=== PATIENT | female | born 2000 | race Caucasian/White ===

== ENCOUNTER 2023-08-10 16:43 | Outpatient (CLI) | payer BC ==
[2023-08-10 17:23] LABS: Appearance,Urine Clear (Clear); Bilirubin,Urine Negative (Negative); Blood,Urine Negative (Negative); Color,Urine Colorless; Glucose,Urine (UA) Negative (Negative); Ketones,Urine Negative (Negative); Leukocyte Esterase,Urine Negative (Negative); Nitrite,Urine Negative (Negative); Protein,Urine Negative (Negative); Specific Gravity,Urine 1.019 (1.001-1.035); Urobilinogen,Urine <2.0 mg/dL (<2.0)
[2023-08-10 17:42] VITALS: BP 129/81; PULSE 99; RESP 16; TEMP 98.1
[2023-08-10 17:44] LABS: Creatinine,Urine Random 87.2 mg/dL; Protein/Creatinine Ratio,Urine 0.057
[2023-08-10 17:46] LABS: Basophils % (A) 0 %; Eosinophils # (A) 0.1 k/uL (0-0.7); Eosinophils % (A) 1 %; HCT 33.3 % (34.0-46.0); HGB 10.9 gm/dL (11.4-16.0); Hypochromasia Slight; Lymphocytes # (A) 1.7 k/uL (1.0-4.8); Lymphocytes % (A) 13 %; MCH 27.7 pg (25.0-35.0); MCHC 32.6 g/dL (31.0-37.0); MCV 84.9 fL (80.0-100.0); Mean Platelet Volume 9.2; Monocytes # (A) 0.6 k/uL (0-1.0); Monocytes % (A) 4 %; Neutrophils # (A) 10.2 k/uL (1.3-7.7); Neutrophils % (A) 81 %; Platelet Count 230 k/uL (150-450); RBC 3.93 m/uL (3.80-5.40); RDW 13.1 % (11.5-15.5); WBC 12.7 k/uL (3.8-10.6)
[2023-08-10 18:01] LABS: ALT 15 U/L (4-34); AST 26 U/L (14-36); African American GFR (CKD) >90 (>60 ml/min/1.73 sqM); Blood Urea Nitrogen 14 mg/dL (7-17); Non-African American GFR(CKD) >90 (>60 ml/min/1.73 sqM); Uric Acid 2.4 mg/dL (3.7-7.4)
== END 2023-08-10 18:58 | disposition home or self-care (01) ==
LOC: FBPOP 16:43
PROVIDERS: ATTEND Obstetrics & Gynecology
DX: O13.3 Gestational [pregnancy-induced] hypertension without significant proteinuria, third trimester (principal); Z3A.33 33 weeks gestation of pregnancy; Z91.010 Allergy to peanuts
CPT/HCPCS: 59025; 81003; 82565; 82570; 84156; 84450; 84460; 84520; 84550; 85025

== ENCOUNTER 2023-09-25 08:35 | Inpatient (IN) | payer BC ==
[2023-10-03] MEDS ORDERED: OXYTOCIN 10 UNIT/ML 1 ML VIAL IM PRN (06:26)
[2023-10-03] MEDS ORDERED: TRANEXAMIC 1,000 MG/100ML-NACL 1,000 MG in EMPTY BAG 1 BAG IV PRN (06:26)
[2023-10-03] MEDS ORDERED: METHYLERGONOVINE 0.2 MG/ML 1 ML AMP IM PRN (06:26)
[2023-10-03] MEDS ORDERED: TERBUTALINE 1 MG/ML VIAL SQ PRN (06:26)
[2023-10-03] MEDS ORDERED: CARBOPROST TROMETHAMINE 250 MCG/ML 1 ML AMP IM PRN (06:26)
[2023-10-03] MEDS ORDERED: LIDOCAINE 0.5% (PF) 5 MG/ML (50 ML SDV) SQ PRN (06:26)
[2023-10-03] MEDS ORDERED: miSOPROStoL 200 MCG TAB PO PRN (06:26)
[2023-10-03] MEDS: LACTATED RINGERS 1,000 ML IV SCH (06:37)
[2023-10-03] MEDS: OXYTOCIN 30 UNITS/500 ML NS 30 UNIT in SALINE 1 500ML.BAG IV SCH (06:45)
[2023-10-03 06:47] LABS: Basophils % (A) 0 %; Eosinophils # (A) 0.1 k/uL (0-0.7); Eosinophils % (A) 1 %; HCT 33.8 % (34.0-46.0); HGB 11.1 gm/dL (11.4-16.0); Hypochromasia Slight; Lymphocytes # (A) 2.1 k/uL (1.0-4.8); Lymphocytes % (A) 20 %; MCH 25.6 pg (25.0-35.0); MCHC 32.7 g/dL (31.0-37.0); Mean Platelet Volume 10.3; Monocytes # (A) 0.6 k/uL (0-1.0); Monocytes % (A) 6 %; Neutrophils # (A) 7.8 k/uL (1.3-7.7); Neutrophils % (A) 72 %; Platelet Count 218 k/uL (150-450); RBC 4.32 m/uL (3.80-5.40); RDW 15.3 % (11.5-15.5); WBC 10.9 k/uL (3.8-10.6)
[2023-10-03 06:56] LABS: MCV 78.2 fL (80.0-100.0)
--- NOTE | 2023-10-03 08:04 | P.HPOB ---
History of Present Illness H&P Date: 10/03/23 Chief Complaint: Induction of labor, post-dates Ms. Villafana is a 23 year old at 41 weeks and 1 day with EDC of 09/25/2023 by 8 week ultrasound who presents to labor and delivery for induction of labor for post-dates. The has otherwise been uncomplicated. The fetus is estimated to be in the 35%ile by a 33 week growth ultrasound. work-up: blood type A positive, antibody screen negative, rubella immune, VDRL non-reactive, HBsAg negative, HIV negative, HCV Ab negative, gonorrhea negative, chlamydia negative, 1 hour GTT 89, GBS negative. s/p TDap vaggine 08/24/23. Past Medical History Past Medical History: No Reported History History of Any Multi-Drug Resistant Organisms: None Reported Additional Past Surgical History / Comment(s): Bland teeth removed 2020 Past Anesthesia/Blood Transfusion Reactions: No Reported Reaction Past Psychological History: No Psychological Hx Reported Smoking Status: Never smoker Medications and Allergies Home Medications Medication Instructions Recorded Confirmed Type Vit No.179/Iron/Folic 1 each PO DAILY 10/03/23 10/03/23 History [ Tablet] Allergies Allergy/AdvReac Type Severity Reaction Status Date / Time peanut Allergy Swelling Verified 10/03/23 06:22 Exam Vital Signs Temp Pulse Resp BP Pulse Ox 10/03/23 06:11 97.7 F 106 H 16 139/89 98 Intake and Output 10/02/23 10/03/23 10/03/23 22:59 06:59 14:59 Other: Weight 104.326 kg Focused physical exam is performed. This is a healthy-appearing in no apparent distress. Breathing is non-labored. Abdomen is gravid and non-tender. Cervical exam is 4 cm, 90 effacement, -2 station. AROM is undertaken with clear fluid noted. Extremities non-tender and non-edematous. heart tones are Category I and tocometer is graphing contractions every 2-4 minutes. Results Result Diagrams: 10/03/23 06:30 Abnormal Lab Results - Last 24 Hours (Table) 10/03/23 Range/Units 06:30 WBC 10.9 H (3.8-10.6) k/uL Hgb 11.1 L (11.4-16.0) gm/dL Hct 33.8 L (34.0-46.0) % MCV 78.2 L D (80.0-100.0) fL Neutrophils # 7.8 H (1.3-7.7) k/uL Assessment and Plan Assessment: 23 year old at 41 weeks and 1 day presenting for induction of labor for post-dates Plan: Admit, NPO, pitocin per protocol, s/p AROM, epidural prn. Anticipate vaginal delivery.
[2023-10-03] MEDS ORDERED: fentaNYL (PF) 50 MCG/ML 5 ML AMP ONE (09:49)
[2023-10-03] MEDS ORDERED: SODIUM CHLORIDE 0.9% 250 ML BAG ONE (09:49)
[2023-10-03] MEDS ORDERED: ROPIVACAINE 5 MG/ML 30 ML VIAL ONE (09:49)
--- NOTE | 2023-10-03 13:33 | P.PROBDLV ---
Vaginal Delivery Note - . Vaginal Delivery Note: DATE OF SERVICE: 10/03/2023 PROCEDURE: Normal Vaginal Delivery ATTENDING: Dr. Mikaela Wooten MD ESTIMATED BLOOD LOSS: 200 mL FINDINGS: VFI, Apgars 8/9. Weight 8 pounds and 10 ounces (3925 grams) PROCEDURE: Ms. Villafana is a 23 year old at 41 weeks and 1 day presenting to labor and delivery for induction of labor. The has been uncomplicated. For further details, please review the admitting H&P. Pitocin was titrated per protocol. AROM was undertaken at 754 revealing clear amniotic fluid. The patient received epidural anesthesia per her request. The patient was completely dilated at 1239. She pushed effectively with Category I heart tones. A viable female was delivered at 1308. Terminal meconium was noted. The was placed on the maternal abdomen and bulb suctioned. The infant was noted to be spontaneously crying. Cord was clamped and cut after a 30-second delay. The was handed off to the pediatric team. Placenta was delivered whole with gentle cord traction at 1312. Oxytocin was started to facilitate uterine tone. Uterine fundus was found to be firm and below the umbilicus upon fundal massage. Thorough examination of the cervix, vagina, periurethral area, and perineum revealed a small second degree laceration that was infused with lidocaine and repaired with 2-0 Vicryl in the usual fashion. The patient is stable and allowed to begin the bonding process.
[2023-10-03] MEDS ORDERED: SIMETHICONE 80 MG CHEWABLE PO PRN (13:34)
[2023-10-03] MEDS ORDERED: LANOLIN CREAM 1 GM TUBE TOPICAL PRN (13:34)
[2023-10-03] MEDS ORDERED: ZOLPIDEM 5 MG TAB PO PRN (13:34)
[2023-10-03] MEDS ORDERED: BENZOCAINE/MENTHOL SPRAY 1 GM/SPRAY AEROSOL TOPICAL PRN (13:34)
[2023-10-03] MEDS ORDERED: ACETAMINOPHEN TAB 325 MG TAB PO PRN (13:34)
[2023-10-03] MEDS ORDERED: diphenhydrAMINE 50 MG CAP PO PRN (13:34)
[2023-10-03] MEDS ORDERED: HYDROCORTISONE 2.5% RECTAL CREAM 30 GM TUBE RECTAL PRN (13:34)
[2023-10-03] MEDS ORDERED: diphenhydrAMINE 25 MG CAP PO PRN (13:34)
[2023-10-03] MEDS ORDERED: diphenhydrAMINE 50 MG/ML 1 ML VIAL IVP PRN ×2 (13:34)
[2023-10-03] MEDS: SENNOSIDES-DOCUSATE SODIUM 1 EACH TAB PO SCH (22:09)
[2023-10-04] MEDS: IBUPROFEN 600 MG TAB PO PRN (01:22)
[2023-10-04 02:58] VITALS: RESP 16
[2023-10-04 08:02] LABS: Basophils % (A) 0 %; Eosinophils # (A) 0.1 k/uL (0-0.7); Eosinophils % (A) 1 %; HCT 32.7 % (34.0-46.0); HGB 10.3 gm/dL (11.4-16.0); Hypochromasia Moderate; Lymphocytes # (A) 2.6 k/uL (1.0-4.8); Lymphocytes % (A) 16 %; MCHC 31.6 g/dL (31.0-37.0); MCV 79.2 fL (80.0-100.0); Mean Platelet Volume 10.2; Monocytes # (A) 0.7 k/uL (0-1.0); Monocytes % (A) 5 %; Neutrophils % (A) 77 %; Platelet Count 211 k/uL (150-450); RBC 4.13 m/uL (3.80-5.40); RDW 15.8 % (11.5-15.5); WBC 15.6 k/uL (3.8-10.6)
[2023-10-04 08:21] VITALS: BP 125/83; PULSE 73; TEMP 97.8
--- NOTE | 2023-10-04 09:05 | P.DS ---
Providers Date of admission: 10/03/23 06:06 Expected date of discharge: 10/04/23 Attending physician: Mikaela Wooten MD Primary care physician: [facility] Course: Ms. Villafana is a 23 year old now PPD#1 s/p normal vaginal delivery after induction of labor at 41 weeks and 1 day for post-dates . The patient is doing well this morning and had no acute events overnight. She has no complaints this morning. She reports minimal lochia, passing flatus, voiding without difficulty, ambulating, and eating/drinking without nausea or vomiting. doing well at bedside. She denies chest pain, shortness of breathing, fevers, or chills overnight. She denies pain or swelling in the legs. restrictions are reviewed with the patient including pelvic rest for 6 weeks. The patient is encouraged to call the office if she experiences any heavy bleeding, foul-smelling discharge, breast complaints, or any if she has any other concerns. The patient did have a few intermittently elevated blood pressure after delivery, this morning all pressures have been normotensive. She will follow up in the office in 1 week for blood pressure check. All questions are answered. Assessment: 23 year old now PPD#1 s/p normal vaginal delivery Patient Condition at Discharge: Good Plan - Discharge Summary New Discharge Prescriptions: New Ibuprofen [Motrin] 600 mg PO Q6HR PRN #30 tab PRN Reason: Mild Pain (Scale 1 To 3) Acetaminophen Tab [Tylenol] 650 mg PO Q6H PRN #30 tab PRN Reason: Mild Pain (Scale 1 To 3) No Action Vit No.179/Iron/Folic [ Tablet] 1 each PO DAILY Discharge Medication List Vit No.179/Iron/Folic [ Tablet] 1 each PO DAILY 10/03/23 [History] Acetaminophen Tab [Tylenol] 650 mg PO Q6H PRN #30 tab 10/04/23 [Rx] Ibuprofen [Motrin] 600 mg PO Q6HR PRN #30 tab 10/04/23 [Rx] Follow up Appointment(s)/Referral(s): Mikaela Wooten MD [STAFF PHYSICIAN] - 1 Week (blood pressure check) Activity/Diet/Wound Care/Special Instructions: Instructions 1. Do not begin any exercise program for 3 weeks. 2. Do not resume sexual relations for 6 weeks or longer if uncomfortable. 3. You may take tub baths or showers at any time. 4. You may use tampons if desired after 6 weeks. 5. Keep any areas repaired with stitches clean and dry. 6. If you are not nursing, wear a good fitting, supportive bra during the day and limit fluid intake for at least 1 week to prevent breast engorgement. 7. Call the office, , within the next week to make appointment for your 6 week checkup if it has not already been made. 8. Report any of the following occurrences to the doctor promptly: a. Heavy, excessive bleeding b. Chills, fever c. Burning or frequency of urination d. Pain or redness and breasts if nursing e. Increasing pain or swelling of vulva (stitches). In addition to the above instructions, the following additional should be followed: 1. No heavy lifting or straining (exercising) until after 6 week checkup. 2. Keep abdominal incision clean and dry: You may wear a dressing if more comfortable. 3. Make office appointment for 2 weeks after delivery date. Discharge Disposition: HOME SELF-CARE
== END 2023-10-04 15:35 | disposition home or self-care (01) | DRG 807 ==
LOC: 4FBP 10-03 06:06
PROVIDERS: ADMIT Obstetrics & Gynecology; ATTEND Obstetrics & Gynecology
PROC: 10E0XZZ Delivery of Products of Conception, External Approach (ICD-10-PCS; principal; 2023-10-03)
PROC: 0KQM0ZZ Repair Perineum Muscle, Open Approach (ICD-10-PCS; 2023-10-03)
PROC: 10907ZC Drainage of Amniotic Fluid, Therapeutic from Products of Conception, Via Natural or Artificial Opening (ICD-10-PCS; 2023-10-03)
PROC: 3E033VJ Introduction of Other Hormone into Peripheral Vein, Percutaneous Approach (ICD-10-PCS; 2023-10-03)
DX: O48.0 Post-term pregnancy (principal); Z37.0 Single live birth; R03.0 Elevated blood-pressure reading, without diagnosis of hypertension; O70.1 Second degree perineal laceration during delivery; O77.0 Labor and delivery complicated by meconium in amniotic fluid; Z3A.41 41 weeks gestation of pregnancy; Z91.010 Allergy to peanuts; Z28.310 Unvaccinated for COVID-19
CPT/HCPCS: 85025; 86850; 86900; 86901